=== PATIENT | female | born 1975 | race Caucasian/White ===

== ENCOUNTER 2022-04-20 13:11 | Emergency (ER) | payer SELFPAY ==
[~2022-04-20] VITALS: Ht 172.7 cm; Wt 109.0 kg
[2022-04-20 13:13] VITALS: BP 134/84
== END 2022-04-20 13:55 | disposition left against medical advice (07) ==
LOC: ER 13:53
DX: F10.129 Alcohol abuse with intoxication, unspecified (principal); Y90.0 Blood alcohol level of less than 20 mg/100 ml; I10 Essential (primary) hypertension; R45.1 Restlessness and agitation
CPT/HCPCS: 99283